=== PATIENT | male | born 1970 | race Caucasian/White ===

== ENCOUNTER 2017-09-14 07:24 | Emergency (ER) | payer BC ==
--- NOTE | 2017-09-14 08:17 | CT ---
CT OF THE BRAIN WIHTOUT CONTRAST: INDICATION: History of nausea, dizziness, and sudden vision change 3 days ago. FINDINGS: No acute infarct, hemorrhage, or hydrocephalus is present. Septum pellucidum and third ventricle are midline. There is stable mucosal retention cyst seen involving the left maxillary sinus when compar ed to the prior dated 04/11/17. IMPRESSION: No acute intracranial abnormality demonstrated. POS: [facility]
[2017-09-14 08:20] LABS: #Basophils 0.1 thou/uL (0.0-0.2); #Eosinphils 0.1 thou/uL (0.0-0.7); #Lymphocytes 1.1 thou/uL (1.20-3.40); #Monocytes 0.5 thou/uL (0.11-0.59); #Neutrophils 4.8 thou/uL (1.40-6.50); %Eosinophils 1.9 % (0.0-10.0); %Lymphocytes 16.3 % (21.0-51.0); %Monocytes 7.7 % (0.0-10.0); %Neutrophils 73.1 % (42.0-75.0); Hemoglobin 14.8 g/dL (14.0-18.0); Mean Corpuscular HGB CONC 35.5 g/dL (32.0-36.0); Mean Corpuscular Hemoglobin 30.2 pg (27.0-31.0); Mean Corpuscular Volume 85.2 fl (80.0-94.0); Mean Platelet Volume 9.3 fL (7.4-10.4); Platelet Count 210 thou/uL (130-400); RBC Distribution Width 11.2 % (11.5-14.5); Red Blood Cell (RBC) Count 4.91 mill/uL (4.70-6.10); White Blood Cell (WBC) Count 6.5 thou/uL (4.8-10.8)
[2017-09-14 08:31] LABS: ALT (SGPT) 25 U/L (8-55); AST (SGOT) 13 U/L (5-34); Albumin 3.9 g/dL (3.5-5.0); Alkaline Phosphatase 87 U/L (40-150); Anion Gap 12 mmol/L (10-20); BUN (Urea Nitrogen) 13 mg/dL (8.9-20.6); Calc. Creatinine Clearance 0 mL/min (70-130); Calcium 9.8 mg/dL (7.8-10.44); Carbon Dioxide 27 mmol/L (22-29); Chloride 104 mmol/L (98-107); Estimated GFR-MDRD 87; Globulin 2.6 g/dL (2.4-3.5); Glucose 183 mg/dL (70-105); Lipase 27 U/L (8-78); Potassium 3.8 mmol/L (3.5-5.1); Protein, Total 6.5 g/dL (6.0-8.3); Sodium 139 mmol/L (136-145)
[2017-09-14 08:49] LABS: Bilirubin Negative (Negative); Blood, Urine Negative (Negative); Glucose, Urine (Dipstick) 500 mg/dL (Negative); Leukocyte Negative (Negative); Nitrite Negative (Negative); Protein, Urine (Dipstick) Negative (Neg-Trace); pH, Urine 7.5 (5.0-9.0)
[2017-09-14 08:52] LABS: Clarity Clear (Clear)
== END 2017-09-14 09:43 | disposition home or self-care (01) ==
LOC: SCSER 07:24
DX: E10.65 Type 1 diabetes mellitus with hyperglycemia (principal); M19.90 Unspecified osteoarthritis, unspecified site
CPT/HCPCS: 36416; 70450; 80053; 81003; 82010; 83690; 85025; 93005; 96360

== ENCOUNTER 2021-01-05 12:17 | Emergency (ER) | payer BC, OTHER ==
[2021-01-05] MEDS ORDERED: Lidocaine 4% Cream 5 GM TUBE w/ Tegaderm ONE (14:04)
[2021-01-05] MEDS ORDERED: Boostrix 0.5 ML (Tdap) VIAL ONE (14:05)
== END 2021-01-05 15:29 | disposition home or self-care (01) ==
LOC: ERS 12:17
DX: S01.511A Laceration without foreign body of lip, initial encounter (principal); E10.9 Type 1 diabetes mellitus without complications; I48.91 Unspecified atrial fibrillation; W22.8XXA Striking against or struck by other objects, initial encounter
CPT/HCPCS: 12011; 70486; 90471; 90715